=== PATIENT | male | born 1955 | race Caucasian/White ===

== ENCOUNTER → 2021-07-06 | Outpatient (CLI) | payer MEDICARE ==
[~2021-07-06] MED LIST: DM H PO; HYDR-2761 PO; IBUP-1060 PO; LISI20TA18 PO
== END ==
LOC: LAB 11:07
PROVIDERS: ATTEND Surgery
DX: Z01.812 Encounter for preprocedural laboratory examination (principal); Z20.822 Contact with and (suspected) exposure to COVID-19; K40.90 Unilateral inguinal hernia, without obstruction or gangrene, not specified as recurrent
CPT/HCPCS: U0003; U0005

== ENCOUNTER 2021-07-08 07:28 | Day surgery (SDC) | payer SELFPAY ==
[~2021-07-08] VITALS: Ht 167.6 cm; Wt 98.0 kg
[~2021-07-08 07:28] MED LIST changes: +ACETAMINOPHEN 500 MG TABLET PO PRN; -HYDR-2761 PO; +HYDROmorphone 2 MG/ML VIAL IVP PRN; +IV RINGERS,LACTATED 1000ML 1,000 ML IV SCH; +PROCHLORPERAZINE 10 MG/2 ML VIAL. IVP PRN; +fentaNYL PF VIAL 100 MCG/2 ML VIAL IVP PRN
[2021-07-08] MEDS ORDERED: DEXAMETHASONE SOD PHOS 4 MG/ML VIAL ONE (07:38)
[2021-07-08] MEDS ORDERED: ONDANSETRON PF 4 MG/2 ML VIAL. ONE (07:38)
[2021-07-08] MEDS ORDERED: PROPOFOL 10 MG/ML (20ML) VIAL. IV ONE (07:38)
[2021-07-08] MEDS ORDERED: LIDOCAINE 2% PF 5 ML VIAL. ONE (07:38)
[2021-07-08] MEDS ORDERED: ROCURONIUM 50 MG/5 ML VIAL. ONE ×2 (07:38→09:13)
[2021-07-08] MEDS ORDERED: fentaNYL PF VIAL 100 MCG/2 ML VIAL ONE ×2 (07:39→10:28)
[2021-07-08] MEDS ORDERED: NEOSTIGMINE METHYLSULFATE 5 MG/5 ML SYRINGE. ONE ×2 (07:39→09:52)
[2021-07-08] MEDS ORDERED: GLYCOPYRROLATE 1 MG/5 ML VIAL. ONE ×2 (07:40→09:52)
[2021-07-08 07:48] VITALS: BP 206/97
[2021-07-08] MEDS ORDERED: MINERAL OIL for SURGERY 10 ML VIAL. MC ONE (07:57)
[2021-07-08] MEDS ORDERED: BUPIVACAINE-EPI 0.25% 30 ML VIAL KIT. ONE (07:57)
--- NOTE | 2021-07-08 08:01 | PDOC1 ---
History and Physical Date of Admission Date of Admission DATE: 07/08/21 TIME: 07:59 Identification/Chief Complaint Chief Complaint Right inguinal hernia Source Source: Patient History of Present Illness History of Present Illness 65-year-old male with complaints of right groin pain and a bulge been present for several months and getting larger more painful Past Medical History Cardiovascular: HTN Pulmonary: No pertinent hx GI: No pertinent hx Heme/Onc: No pertinent hx Hepatobiliary: No pertinent hx Psych: No pertinent hx Rheumatologic: No pertinent hx Infectious disease: No pertinent hx ENT: No pertinent hx Renal/: No pertinent hx Endocrine: No pertinent hx Dermatology: No pertinent hx Past Surgical History Past Surgical History: Other (Scrotal surgery as an ) Family History Family History: No Significant Social History Smoke: No ALCOHOL: rare Drugs: None Current Medications Current Medications Current Medications Fentanyl Citrate (Fentanyl 2ml Vial) 25 mcg PRN Q5MIN PRN IVP MILD PAIN 1-3; Start 07/08/21 at 06:00; Stop 07/09/21 at 05:59 Fentanyl Citrate (Fentanyl 2ml Vial) 50 mcg PRN Q5MIN PRN IVP MODERATE PAIN 4- 6; Start 07/08/21 at 06:00; Stop 07/09/21 at 05:59 Morphine Sulfate (Morphine Sulfate) 1 mg PRN Q10MIN PRN IVP SEVERE PAIN 7-10; Start 07/08/21 at 06:00; Stop 07/09/21 at 05:59 Ringer's Solution 1,000 ml @ 30 mls/hr Q24H IV ; Start 07/08/21 at 06:00; Stop 07/08/21 at 17:59 Hydromorphone HCl (Dilaudid) 0.5 mg PRN Q10MIN PRN IVP SEVERE PAIN 7-10, 2nd CHOICE; Start 07/08/21 at 06:00; Stop 07/09/21 at 05:59 Prochlorperazine Edisylate (Compazine) 5 mg PACU PRN PRN IVP NAUSEA, MRX1; Start 07/08/21 at 06:00; Stop 07/09/21 at 05:59 Acetaminophen (Tylenol) 1,000 mg 1X PREOP PRN PO PRIOR TO PROCEDURE; Start 07/08/21 at 06:00 Cefazolin Sodium/ Dextrose 50 ml @ 100 mls/hr 1X PREOP PRN IV PRIOR TO PROCEDURE; Start 07/08/21 at 06:00; Stop 07/08/21 at 18:00 Lidocaine HCl (Lidocaine Pf 2% Vial) 5 ml STK-MED ONCE .ROUTE ; Start 07/08/21 at 07:38; Stop 07/08/21 at 07:38; Status DC Propofol (Diprivan) 200 mg STK-MED ONCE IV ; Start 07/08/21 at 07:38; Stop 07/08/21 at 07:38; Status DC Ondansetron HCl (Zofran) 4 mg STK-MED ONCE .ROUTE ; Start 07/08/21 at 07:38; Stop 07/08/21 at 07:38; Status DC Dexamethasone Sodium Phosphate (Decadron) 4 mg STK-MED ONCE .ROUTE ; Start 07/08/21 at 07:38; Stop 07/08/21 at 07:38; Status DC Rocuronium Sidell (Zemuron) 50 mg STK-MED ONCE .ROUTE ; Start 07/08/21 at 07:38; Stop 07/08/21 at 07:39; Status DC Fentanyl Citrate (Fentanyl 2ml Vial) 100 mcg STK-MED ONCE .ROUTE ; Start 07/08/21 at 07:39; Stop 07/08/21 at 07:39; Status DC Neostigmine Sidell (Neostigmine Methylsulfate) 5 mg STK-MED ONCE .ROUTE ; Start 07/08/21 at 07:39; Stop 07/08/21 at 07:40; Status DC Glycopyrrolate (Robinul) 1 mg STK-MED ONCE .ROUTE ; Start 07/08/21 at 07:40; Stop 07/08/21 at 07:40; Status DC Mineral Oil (Muri-Lube) 10 ml STK-MED ONCE MC ; Start 07/08/21 at 07:57; Stop 07/08/21 at 07:57; Status DC Bupivacaine HCl/ Epinephrine Bitart (Sensorcain-Epi 0.25% Kit) 30 ml STK-MED ONCE .ROUTE ; Start 07/08/21 at 07:57; Stop 07/08/21 at 07:58; Status DC Active Scripts Active Reported Ibuprofen 800 Mg Tablet 800 Mg PO PRN Q6HRS PRN Leslie-Sebring Plus Flu Tab Eff (Dm Hb/Pe/Acetaminophen/Chlorph) 1 Each Tablet.eff 1 Each PO PRN DAILY PRN Lisinopril 20 Mg Tablet 20 Mg PO DAILY Allergies Allergies: Coded Allergies: No Known Drug Allergies (Unverified , 07/06/21) ROS Genitourinary: YES Pain (Right groin) Physical Exam General: Alert, Oriented X3, Cooperative, No acute distress HEENT: Atraumatic Lungs: Clear to auscultation, Normal air movement Heart: RRR, no murmurs Abdomen: Normal bowel sounds, Soft, No tenderness Male Genitals Exam: inguinal tenderness (Right groin hernia) Rectal Exam: not examined Extremities: No edema Skin: No significant lesion Neuro: Normal speech Psych/Mental Status: Mental status NL Vitals Vitals Vital Signs Date Time Temp Pulse Resp B/P (MAP) Pulse Ox O2 Delivery O2 Flow Rate FiO2 07/08/21 07:48 97.3 109 22 96 97.3 VTE Prophylaxis Ordered VTE Prophylaxis Devices: Yes VTE Pharmacological Prophylaxi: Contraindicated Assessment/Plan Assessment/Plan Right inguinal hernia plan robotic laparoscopic repair Justifications for Admission Other Justification MAK AU MD Jul 08, 2021 08:01
[2021-07-08] MEDS ORDERED: ePHEDrine PF IN SALINE 50 MG/10 ML SYRINGE. IV ONE (09:00)
[2021-07-08] MEDS ORDERED: VASOPRESSIN 20 UNIT/ML VIAL. ONE (09:01)
--- NOTE | 2021-07-08 09:46 | PDOC4 ---
Operative Note Operative Note Date: July 082020 at 943 Preoperative diagnosis: Right inguinal hernia Postoperative diagnosis: Same Procedure: Robotic assisted laparoscopic right inguinal hernia repair with mesh Surgeon: Ayan Specimen: None Dictation: Patient is a 65-year-old gentleman with complaints of right groin pain with a inguinal hernia. Procedure of robotic assisted laparoscopic inguinal hernia repair with mesh was explained to the patient detail risk benefi ts were also discussed including bleeding infection injury to intra-abdominal contents possible necessitating further open operations alternatives to this procedure also discussed with the patient who seemed to understand and gave a verbal written consent to have the procedure performed. Patient was taken to the operating room placed in the supine position general anesthesia was i nitiated once patient was sleeping in bed is placed in low lithotomy position and his abdomen was prepped and draped usual sterile fashion using ChloraPrep. An area just above the umbilicus was injected with quarter percent Marcaine with epinephrine incision was made 11 blade scalpel and a varies needle was placed within the abdomen creating pneumoperitoneum once this was complete 8 mm ventral port was placed and the camera was placed within the abdomen which was inspected it was noted there was a right inguinal hernia rest of the abdomen appeared to be normal. 8 mm ventral port was placed in the right midabdomen and an 8 mm da Breonna port was placed in left midabdomen all under direct visualization. The da Breonna robot was brought and docked all port sites surgeon went to the robotic console using a grasper and Endo Donna scissors the peritoneum on the right side was incised and propagated inferiorly reducing the hernia sac and contents which appeared to be a direct inguinal hernia. A large Bard 3D max mesh for the right side was placed over the floor the inguinal area covering the defect a 3-0 Vicryl suture was used to tack the superior border of the mesh to the abdominal wall the peritoneum was then closed with a running 2 OV lock absorbable suture. Sutures removed from the abdomen the da Breonna robot undocked from all port sites the pneumoperitoneum reduced and all ports removed the port sites were all closed with 4-0 subcuticular Monocryl Mastisol Steri-Strips and island dressings were applied. Patient was awakened and extubated operating room taken to recovery in stable condition all sponge instrument needle counts listed as c orrect estimated blood loss 5 mL MAK AU MD Jul 08, 2021 09:46
[2021-07-08] MEDS ORDERED: HYDR-2761 PO ×2 (09:49→10:44)
--- NOTE | 2021-07-08 09:50 | DISCH ---
DISCHARGE INSTRUCTIONS Condition on Discharge Condition on Discharge: Stable Activity After Discharge Activity Instructions for Disc: Avoid exertion Other activity instructions: No lifting more than 20 pounds for 2 weeks Diet after Discharge Diet after Discharge: Regular Wound Incision Care Other wound/incision instructi: Kylah shower 24 hours Contacting the after DC Call your doctor for: If your condition worsens Follow-Up Follow up with: Dr. Au in 2-week MAK AU MD Jul 08, 2021 09:50
[2021-07-08] MEDS ORDERED: MORPHINE SULFATE 2 MG/ML INJ. ONE ×2 (10:04→10:28)
[2021-07-08] MEDS: MORPHINE SULFATE 2 MG/ML INJ. IVP PRN ×2 (10:06→10:17)
[2021-07-08] MEDS ORDERED: SEVOFLURANE 31 TO 60 MINUTES. IH ONE (10:13)
[2021-07-08] MEDS ORDERED: HYDROcodone/APAP 5/325MG 1 TAB TABLET PO PRN (10:15)
[2021-07-08 10:43] VITALS: BP 104/56
[2021-07-08] MEDS ORDERED: HYDROmorphone 2 MG/ML VIAL ONE (11:01)
[2021-07-08] MEDS ORDERED: SUGAMMADEX SODIUM 200 MG/2 ML VIAL. IVP ONE (12:15)
== END 2021-07-08 11:08 | disposition home or self-care (01) ==
LOC: SURG 07:28
PROVIDERS: ATTEND Surgery
DX: K40.90 Unilateral inguinal hernia, without obstruction or gangrene, not specified as recurrent (principal); I10 Essential (primary) hypertension; M19.90 Unspecified osteoarthritis, unspecified site; Z79.899 Other long term (current) drug therapy; Z87.891 Personal history of nicotine dependence; Z98.890 Other specified postprocedural states
CPT/HCPCS: 49650; A4215; A4364; A4930; A6219; C1781; J0690; J1100; J1170; J2270; J2405; J2704; J2710; J3010; J3490; S2900; A4223; A4657